=== PATIENT | male | born 1985 | race Caucasian/White ===

== ENCOUNTER 2016-05-08 14:28 | Emergency (ER) | payer SELFPAY ==
--- NOTE | 2016-05-11 13:18 | ER ---
ADMIT: 05/08/2016 RM/LOC: ER [facility] MR#: [id number] [address] [id number] DECLAN MCCLENDON [address] [place] [address], [place] [id number] Emergency Room Report SEX: M AGE: 30 : 1985 DATE: 05/08/2016 TIME: 1428 hours. Please refer to my T-sheet for complete H and P. Briefly, the patient is a 30- year-old who about a week ago was working with a bisi at home when he strained his left shoulder. He works at [employer]. He says while lifting he has been unable to do it because it hurts even worse. Comes in for evaluation saying he does not think he can go back to duties as it hurts whenever he moves his shoulder, even above his head. PHYSICAL EXAMINATION: VITAL SIGNS: Stable. EXTREMITIES: Left shoulder has pain with external rotation. No pain with abduction and no pain with internal rotation. I suspect it is teres minor or infraspinatus strain. I placed him in a sling and he was ready for discharge. ASSESSMENT: Left rotator cuff strain, possible tear of the teres minor infraspinatus. PLAN: Sling, rest ice, elevate, Tylenol, Motrin. Follow up with Dr. Garrido this week. Salo Fields MD/ lashawn JOB #: [id number] CC: Salo Fields MD, Attending Physician
== END 2016-05-08 15:29 | disposition home or self-care (01) ==
LOC: ER 14:28
DX: S46.012A Strain of muscle(s) and tendon(s) of the rotator cuff of left shoulder, initial encounter (principal); F17.210 Nicotine dependence, cigarettes, uncomplicated; Z79.899 Other long term (current) drug therapy; X50.9XXA Other and unspecified overexertion or strenuous movements or postures, initial encounter; Y92.009 Unspecified place in unspecified non-institutional (private) residence as the place of occurrence of the external cause